=== PATIENT | female | born 1985 | race Caucasian/White ===

== ENCOUNTER 2016-11-27 21:03 | Emergency (ER) | payer OTHER ==
[~2016-11-27] VITALS: Ht 172.7 cm; Wt 63.9 kg
[~2016-11-27 21:03] MED LIST: HYDR-3702 PO; NO HOME MEDS; OXYC1TAB12 PO
[2016-11-27] MEDS ORDERED: methylPREDNISolone 125 MG (Solu-MEDROL) VIAL IV ONE (21:50)
[2016-11-27] MEDS ORDERED: SODIUM CHLORIDE FLUSH 3 ML SYR IV ONE (22:30)
[2016-11-27] MEDS ORDERED: SODIUM CHLORIDE FLUSH 10 ML SYR IV PRN (22:30)
[2016-11-27] MEDS ORDERED: KETOROLAC 30 MG/ML (TORADOL) 1 ML VIAL IV ONE (22:30)
[2016-11-27] MEDS ORDERED: ED- PREDNISONE 10 MG (DELTASONE) 10 TABLETS/BTL PO ONE (22:55)
[2016-11-27 23:07] VITALS: BP 102/69
== END 2016-11-27 23:10 | disposition home or self-care (01) ==
LOC: ED 21:04
DX: L24.4 Irritant contact dermatitis due to drugs in contact with skin (principal); R07.9 Chest pain, unspecified; R51 Headache; X58.XXXA Exposure to other specified factors, initial encounter; Y92.63 Factory as the place of occurrence of the external cause; Y99.0 Civilian activity done for income or pay
CPT/HCPCS: 96374; 96375; 99283; J1885; J2930; 93010